=== PATIENT | female | born 1955 | race Two or more races ===

== ENCOUNTER 2020-10-01 06:52 | Day surgery (SDC) | payer OTHER ==
[~2020-10-01 06:52] MED LIST: CANDESARTAN CILE8 MG PO; CATAFLAM50 MG PO; EFFEXOR XR75 MG PO; LEVO-T50 MCG PO; TRAM1TAB98 PO
[2020-10-01] MEDS ORDERED: ULTRACET PO (10:40)
[2020-10-01] MEDS ORDERED: DICLOFENAC SODI75 MG PO (10:41)
== END 2020-10-01 13:50 | disposition home or self-care (01) ==
LOC: CIR.AMB 06:52
PROVIDERS: ATTEND Surgery
DX: R15.9 Full incontinence of feces (principal); Z20.822 Contact with and (suspected) exposure to COVID-19
CPT/HCPCS: 64590; 95972; L8679